=== PATIENT | female | born 1980 | race Caucasian/White ===

== ENCOUNTER → 2016-11-21 | Day surgery (SDC) | payer OTHER ==
[~2016-11-21] MED LIST: ALLEGRA180 MG PO; COUMADIN5 MG PO; PREVACID PO; PROZAC40 M1 PO; SINGULAIR; VITAMIN D1000 UNIT PO; ZEGERID 40 MG1 EACH
--- NOTE | ~2016-11-21 | OR ---
Unit #: [id number] #: [id number] Patient: BERTHA LEAL [id number] [address] [place], [place] [address] [id number] O MR#: [id number] NAME: BERTHA LEAL ROOM: Date of Procedure: 11/21/2016 Admission Date: 11/21/2016 Surgeon: Pernell Lindsay M.D. : 1980 Attending Physician: Pernell Lindsay M.D. Referring Physician: Pernell Lindsay M.D. Primary Care Physician: Brendan Chávez M.D. PROCEDURE OPERATIVE NOTE ATTENDING PHYSICIAN Dr. Brendan Chávez OPERATING PHYSICIAN Dr. Pernell Lindsay PREOP DIAGNOSES 1. Iron deficiency anemia. 2. Anemia of chronic GI blood loss. PROCEDURE Upper GI endoscopy and biopsy. POSTOP DIAGNOSIS FOR UPPER ENDOSCOPY Patient had a moderate prepyloric antral erosive gastritis. This was in the form of linear erosions and erythema like spokes of a wheel in the antral area. Biopsies obtained from the antrum for CLOtest. The rest of the examination up to the third part of the duodenum was normal. Biopsies also obtained from the deep descending duodenal folds to look for any evidence of partial (1) celiac disease. POSTOP DIAGNOSIS FOR COLONOSCOPY Completely normal examination up to cecum, antrum and ileum. The quality of prep was excellent. No polyps, angiodysplasias, diverticula or hemorrhoids were seen. RECOMMENDATIONS Patient being initiated on intravenous iron infusions for the next 3-4 days. She will be reviewed thereafter in the office with repeat CBC and iron studies. SEDATION USED MAC. PROCEDURE DESCRIPTION Following detailed explanation of potential risks and complications of an upper endoscopy and a colonoscopy, namely perforation, bleeding, and complications related to sedation, the patient was brought to the GI lab, laid in the left lateral decubitus position. The lubricated tip of the Olympus video upper endoscope was passed through the bite block into the proximal esophagus under direct vision. The entire esophageal mucosa was examined and appeared normal. Z-line was nicely demarcated and no Unit #: [id number] #: [id number] Patient: BERTHA LEAL esophagitis or hiatus hernia. The scope was then passed to the gastric cavity and the latter was insufflated. The mucosa of the fundus, body and antrum was examined and patient was noted to have moderate prepyloric antral erosive gastritis. This was in the form of linear erythematous streaks and erosions. The pylorus was intubated. Visualization revealed normal duodenal bulb and second and third part of the duodenum. Biopsies obtained in the descending duodenal folds to look for any evidence of partial (2) celiac disease. Upon withdrawal and retroflexion, the incisura, cardia and greater curve were examined and a biopsy obtained from the antrum for CLOtest. The scope was then withdrawn in the distal esophagus. The entire esophageal mucosa was examined all the way up to the pharynx. No additional findings noted. The examination table was turned 180 degrees with patient positioned for a colonoscopy. A digital rectal examination was performed which was normal. Lubricated tip of the Olympus video colonoscope was inserted through the anus and advanced under direct vision. The scope was advanced past the rectosigmoid into the descending colon. No diverticula were noted in this area. The scope was then navigated all the way up to the cecum with visualization of the ileocecal wall and the appendiceal orifice with good visualization and photodocumentation was obtained. The last several inches of the terminal ileum also visualized after intubation of the ileocecal appeared normal. Successive segments of the colonic mucosa were examined upon withdrawal and appeared unremarkable, there being no polyps, mass lesions, AVMs or diverticula. No hemorrhoids noted at the anal verge. The scope was then withdrawn. Patient returned to recovery area. She tolerated the procedure without any postprocedure complications. Dictated by... Viviana Wing TD: 11/23/2016 09:36 JOB #: [id number] PROCEDURE OPERATIVE NOTE Page 1 of 1 X Pernell Lindsay MD X PROCEDURE OPERATIVE NOTE
== END | disposition home or self-care (01) ==
LOC: COPS 13:50
DX: K29.80 Duodenitis without bleeding (principal); K29.00 Acute gastritis without bleeding; D50.0 Iron deficiency anemia secondary to blood loss (chronic); M19.90 Unspecified osteoarthritis, unspecified site; F17.210 Nicotine dependence, cigarettes, uncomplicated; Z79.899 Other long term (current) drug therapy
CPT/HCPCS: 84703; 87077; 88305